=== PATIENT | male | born 1955 | race Caucasian/White ===

== ENCOUNTER 2017-04-24 10:59 | Inpatient (IN) ==
[2017-04-24] MEDS ORDERED: THIAMINE 200 MG/2 ML VIAL IV STA (11:43)
[2017-04-24] MEDS ORDERED: THIAMINE 200 MG/2 ML VIAL ONE (11:54)
[2017-04-24] MEDS ORDERED: cefTRIAXone 2,000 MG in SODIUM CHLORIDE 0.9% 100 ML IV ONE (11:55)
[2017-04-24] MEDS ORDERED: cefTRIAXone 1,000 MG VIAL ONE (11:59)
[2017-04-24 12:03] LABS: Basophils % 0.3 % (0.0-0.8); Eosinophils % 0.3 % (0.00-10.9); Hemoglobin 13.9 GM/DL (14.0-18.0); Immature Granulocytes % 0.6 %; Immature Granulocytes Absolute 0.02 #; Lymphocytes # 0.1 10*3/uL (1.4-4.0); Lymphocytes % 2.9 % (21.2-54.2); Mean Corpuscular HGB Conc 36.6 GM/DL (32-36); Mean Corpuscular Hemoglobin 36 PG (27-34); Mean Corpuscular Volume 97.9 FL (87-102); Mean Platelet Volume 10.7 FL (9.6-12.0); Monocytes # 0.3 10*3/uL (0.11-0.8); Monocytes % 9.7 % (1.7-12.7); Neutrophils % 86.2 % (38.7-73.9); Red Blood Count 3.88 MC/CUMM (3.8-5.5); Red Cell Distribution Width 12.7 % (9.3-17.3); White Blood Count 3.5 T/CUMM (4-12)
[2017-04-24 12:19] LABS: Platelet Count 92 T/CUMM (130-400)
[2017-04-24 12:28] LABS: Ammonia 21 UMOL/L (11-32)
[2017-04-24] MEDS ORDERED: THIAMINE INJ 100 MG, FOLIC ACID INJ 1 MG, MULTIVITAMIN INJ 10 ML in SODIUM CHLORIDE 0.9... IV SCH (12:30)
[2017-04-24] MEDS ORDERED: SODIUM CHLORIDE 0.9% 1,000 ML IV SCH (12:30)
[2017-04-24 12:31] LABS: Alanine Aminotransferase 288 U/L (16-61); Albumin 3.6 G/DL (3.4-5.0); Alkaline Phosphatase 97 U/L (45-117); Aspartate Amino Transferase 562 U/L (0-37); Blood Urea Nitrogen 19 MG/DL (7-18); Calcium 9.6 MG/DL (8.5-10.1); Glucose 96 MG/DL (74-106); Osmolality,Calculated 263.7 MOS/KG (273-304); Potassium 3.6 MMOL/L (3.5-5.1); Sodium 131 MMOL/L (136-145); Total Protein 6.7 G/DL (6.4-8.3)
[2017-04-24 13:12] LABS: Folate 6.2 NG/ML (5.4-24.0)
[2017-04-24 13:42] LABS: Apearance,Urine CLEAR (Clear); Bilirubin,Urine Negative (Negative); Blood, Urine Negative (Negative); Glucose,Urine (UA) Negative (Negative); Hyaline Casts,Urine 1 /LPF (0-3); Ketones,Urine 5 mg/dL (Negative); Mucus,Urine Occasional /LPF (Occasional); Nitrite,Urine Negative (Negative); Protein,Urine 30 MG/DL; RBC,Urine 1 /HPF (0-4); Squamous Epithelial Cell,Urine Occasional /HPF (0-10); Urine Color Amber (Yellow); Urine Specific Gravity 1.018 (1.001-1.035); WBC,Urine 1 /HPF (0-6)
[2017-04-24 13:54] LABS: ABG Base Excess 4.1 MMOL/L (-2.5-2.5); ABG HCO3 28.1 MMOL/L (20-26); ABG Oxygen Saturation 98.8 % (95-100); ABG PCO2 44.3 MM HG (35-48); ABG PH 7.426 (7.35-7.45); ABG TCO2 25.4 MMOL/L (23-27)
[2017-04-24 14:26] LABS: Band Neutrophils 5 % (0-10); Lymphocytes 3 % (20-55); Myelocytes 3 %; Segmented Neutrophils 78 % (50-85)
[2017-04-24 14:27] LABS: Platelet Estimate Decreased; Total Cells Counted 100
[2017-04-24] MEDS: 1: THIAMINE INJ 100 MG, FOLIC ACID INJ 1 MG, MULTIVITAMIN INJ 10 ML in SODIUM CHLORIDE 0 IV SCH ×2 (15:06→20:24)
[2017-04-24] MEDS ORDERED: PANTOPRAZOLE 40 MG VIAL IV ONE (15:07)
[2017-04-24] MEDS: PANTOPRAZOLE 40 MG VIAL IV SCH (15:20)
[2017-04-24] MEDS ORDERED: ACETAMINOPHEN 650 MG SUPP RECTAL PRN (15:34)
[2017-04-24] MEDS ORDERED: ACETAMINOPHEN 650 MG SUPP RECTAL STA (15:35)
[2017-04-24 15:36] LABS: Hepatitis A Ab IgM Quant < 0.02 Index; Hepatitis A Ab IgM Result Negative (Negative); Hepatitis B Core IgM Quant 0.11 Index; Hepatitis B Core IgM Result Negative (Negative); Hepatitis B Surface Ag Quant < 0.10 Index; Hepatitis B Surface Ag Result Negative (Negative); Hepatitis C Virus Ab Quant < 0.02 Index; Hepatitis C Virus Ab Result Negative (Negative)
[2017-04-24] MEDS ORDERED: THIAMINE INJ 100 MG, FOLIC ACID INJ 1 MG, MULTIVITAMIN INJ 10 ML in DEXTROSE 5% NACL 0.... IV SCH (16:00)
[2017-04-24] MEDS ORDERED: DEXTROSE 5% NACL 0.9% 1,000 ML IV SCH (16:00)
[2017-04-24] MEDS ORDERED: ACETAMINOPHEN 650 MG SUPP RECTAL ONE (16:00)
[2017-04-24 16:27] LABS: Albumin 3.7 G/DL (3.4-5.0); Bilirubin,Direct 0.86 MG/DL (0.0-0.20); Bilirubin,Indirect 0.6 MG/DL (0.0-1.0); Bilirubin,Total 1.5 MG/DL (0.2-1.0); Total Protein 6.9 G/DL (6.4-8.3)
[2017-04-24 16:39] LABS: Magnesium 1.8 MG/DL (1.8-2.4); Phosphorous 1.3 MG/DL (2.5-4.9)
[2017-04-24] MEDS ORDERED: INFLUENZA VIRUS VACCINE 0.5 ML SYRINGE IM ONE (19:30)
[2017-04-25] MEDS: LORazepam 2 MG/1 ML VIAL IV PRN ×3 (02:06→22:04)
[2017-04-25 06:07] LABS: Calcium 7.9 MG/DL (8.5-10.1); Potassium 3.1 MMOL/L (3.5-5.1); Total Protein 5.7 G/DL (6.4-8.3)
[2017-04-25] MEDS: PANTOPRAZOLE 40 MG VIAL IV SCH (08:36)
[2017-04-25] MEDS ORDERED: THIAMINE 200 MG/2 ML VIAL IM SCH (09:00)
[2017-04-25 09:31] LABS: Hepatitis A Ab IgM Quant < 0.02 Index; Hepatitis A Ab IgM Result Negative (Negative); Hepatitis B Core IgM Quant 0.11 Index; Hepatitis B Core IgM Result Negative (Negative); Hepatitis B Surface Ag Quant < 0.10 Index; Hepatitis B Surface Ag Result Negative (Negative); Hepatitis C Virus Ab Quant < 0.02 Index; Hepatitis C Virus Ab Result Negative (Negative)
[2017-04-25] MEDS: cefTRIAXone 1,000 MG in SYRINGE 1 EACH IV SCH (11:52)
[2017-04-25] MEDS: amLODIPine 5 MG TABLET PO SCH (12:12)
[2017-04-25] MEDS ORDERED: ACETAMINOPHEN 325 MG TABLET PO PRN (12:13)
[2017-04-25] MEDS: DIAZEPAM 10 MG/2 ML SYRINGE IV PRN (23:13)
[2017-04-26] MEDS: LORazepam 2 MG/1 ML VIAL IV PRN ×7 (03:00→23:35)
[2017-04-26] MEDS: PANTOPRAZOLE 40 MG VIAL IV SCH (08:42)
[2017-04-26] MEDS: amLODIPine 5 MG TABLET PO SCH (08:42)
[2017-04-26 09:43] LABS: PT Patient Result 10.1 SECS
[2017-04-26] MEDS ORDERED: ENOXAPARIN 40 MG/0.4 ML SYRINGE SUBCUT SCH (10:00)
[2017-04-26 10:28] LABS: Free T4 (Free Thyroxine) 1.29 NG/DL (0.76-1.46); Thyroid Stimulating Hormone 0.128 uIU/ml (0.358-3.74)
[2017-04-26] MEDS ORDERED: POTASSIUM CHLORIDE 20 MEQ TABLET PO ONE (10:30)
[2017-04-26] MEDS ORDERED: POTASSIUM CHLORIDE INJ 30 MEQ in DEXTROSE 5% 1,000 ML IV SCH (10:30)
[2017-04-26 12:15] LABS: Lymphocytes,CSF 89 %; Monocytes,CSF 11 %
[2017-04-26 12:16] LABS: Appearance,CSF Clear; Red Blood Cell,CSF < 1 C/CUMM; White Blood Cell,CSF 8 C/CUMM
[2017-04-26] MEDS: cefTRIAXone 1,000 MG in SYRINGE 1 EACH IV SCH (12:50)
[2017-04-26 13:08] LABS: HIV Antigen/Antibody Result Nonreactive (Nonreactive)
[2017-04-26] MEDS ORDERED: POTASSIUM PHOSPHATE 30 MMOL in SODIUM CHLORIDE 0.9% 250 ML IV ONE (17:00)
[2017-04-26] MEDS: DIAZEPAM 10 MG/2 ML SYRINGE IV PRN (20:09)
[2017-04-27] MEDS: LORazepam 2 MG/1 ML VIAL IV PRN (03:47)
[2017-04-27 04:58] LABS: Basophils % 0.4 % (0.0-0.8); Eosinophils % 0.4 % (0.00-10.9); Hematocrit 36.8 VOL% (42.0-52.0); Hemoglobin 13.6 GM/DL (14.0-18.0); Immature Granulocytes % 0.7 %; Immature Granulocytes Absolute 0.02 #; Lymphocytes # 0.4 10*3/uL (1.4-4.0); Lymphocytes % 13.9 % (21.2-54.2); Mean Corpuscular Hemoglobin 36 PG (27-34); Mean Corpuscular Volume 96.6 FL (87-102); Monocytes # 0.5 10*3/uL (0.11-0.8); Monocytes % 18.2 % (1.7-12.7); Neutrophils # 1.8 10*3/uL (1.4-7.4); Neutrophils % 66.4 % (38.7-73.9); Platelet Count 80 T/CUMM (130-400); Red Blood Count 3.81 MC/CUMM (3.8-5.5); Red Cell Distribution Width 12.7 % (9.3-17.3); White Blood Count 2.7 T/CUMM (4-12)
[2017-04-27 05:32] LABS: Band Neutrophils 2 % (0-10); Giant Platelets Few; Hypochromasia 1+; Lymphocytes 19 % (20-55); Ovalocytes Slight; Platelet Estimate Decreased; Segmented Neutrophils 62 % (50-85); Total Cells Counted 100
[2017-04-27 05:43] LABS: Phosphorous 2.5 MG/DL (2.5-4.9); Prealbumin 10.8 MG/DL (20-40)
[2017-04-27 05:57] LABS: Albumin 2.6 G/DL (3.4-5.0); Bilirubin,Total 0.7 MG/DL (0.2-1.0); Calcium 7.8 MG/DL (8.5-10.1); Osmolality,Calculated 266.2 MOS/KG (273-304); Potassium 2.9 MMOL/L (3.5-5.1); Total Protein 5.5 G/DL (6.4-8.3)
[2017-04-27] MEDS ORDERED: MAGNESIUM SULF RIDER 2 GM in PREMIX 1 EACH IV PRN (08:04)
[2017-04-27] MEDS ORDERED: MAGNESIUM SULF RIDER 4 GM in PREMIX 1 EACH IV PRN (08:04)
[2017-04-27] MEDS ORDERED: POTASSIUM CHLORIDE 20 MEQ/15 ML UDCUP PO ONE (09:00)
[2017-04-27] MEDS: POTASSIUM CHLORIDE RIDER 10 MEQ in PREMIX 1 EACH IV PRN ×4 (10:19→15:00)
[2017-04-27] MEDS: PANTOPRAZOLE 40 MG VIAL IV SCH (10:19)
[2017-04-27] MEDS: amLODIPine 5 MG TABLET PO SCH (10:19)
[2017-04-27] MEDS: ZIPRASIDONE 20 MG/1 ML VIAL IM PRN (12:15)
[2017-04-27] MEDS: cefTRIAXone 1,000 MG in SYRINGE 1 EACH IV SCH (13:26)
[2017-04-27] MEDS: SUCRALFATE 1 GM/10 ML UDCUP NG SCH ×3 (13:38→23:30)
[2017-04-27] MEDS: POTASSIUM CHLORIDE 20 MEQ/15 ML UDCUP PO SCH (21:02)
[2017-04-28] MEDS: SUCRALFATE 1 GM/10 ML UDCUP NG SCH ×3 (05:44→17:15)
[2017-04-28 06:22] LABS: Basophils % 0.4 % (0.0-0.8); Hematocrit 36.1 VOL% (42.0-52.0); Hemoglobin 13.2 GM/DL (14.0-18.0); Immature Granulocytes % 0.4 %; Immature Granulocytes Absolute 0.01 #; Lymphocytes # 0.4 10*3/uL (1.4-4.0); Mean Corpuscular HGB Conc 36.6 GM/DL (32-36); Mean Corpuscular Hemoglobin 36 PG (27-34); Mean Corpuscular Volume 97.8 FL (87-102); Mean Platelet Volume 11.4 FL (9.6-12.0); Monocytes # 0.5 10*3/uL (0.11-0.8); Monocytes % 19.6 % (1.7-12.7); Neutrophils # 1.6 10*3/uL (1.4-7.4); Neutrophils % 63.6 % (38.7-73.9); Platelet Count 101 T/CUMM (130-400); Red Blood Count 3.69 MC/CUMM (3.8-5.5); Red Cell Distribution Width 12.8 % (9.3-17.3); White Blood Count 2.5 T/CUMM (4-12)
[2017-04-28 06:53] LABS: Albumin 2.5 G/DL (3.4-5.0); Bilirubin,Total 0.9 MG/DL (0.2-1.0); Osmolality,Calculated 274.7 MOS/KG (273-304); Total Protein 5.5 G/DL (6.4-8.3)
[2017-04-28 06:57] LABS: Band Neutrophils 3 % (0-10); Lymphocytes 15 % (20-55); Segmented Neutrophils 60 % (50-85); Total Cells Counted 100
[2017-04-28 06:59] LABS: Giant Platelets Few; Hypochromasia 1+; Ovalocytes Slight; Platelet Estimate Decreased
[2017-04-28] MEDS ORDERED: IBUPROFEN 100 MG/5 ML UDCUP PO PRN (07:06)
[2017-04-28] MEDS: POTASSIUM CHLORIDE 20 MEQ/15 ML UDCUP PO SCH ×2 (09:09→21:18)
[2017-04-28] MEDS: amLODIPine 5 MG TABLET PO SCH (09:09)
[2017-04-28] MEDS: ACETAMINOPHEN 325 MG/10.15 ML UDCUP PER TUBE PRN (11:07)
[2017-04-28] MEDS ORDERED: ZIPRASIDONE 20 MG CAPSULE PO SCH (12:30)
[2017-04-28] MEDS: ALBUTEROL/IPRATROPIUM 3 ML NEB RESP TX SCH ×2 (13:41→20:03)
[2017-04-28] MEDS ORDERED: SODIUM PHOSPHATE INJ 30 MMOL in SODIUM CHLORIDE 0.9% 250 ML IV ONE (14:00)
[2017-04-29] MEDS: SUCRALFATE 1 GM/10 ML UDCUP NG SCH ×4 (00:22→17:59)
[2017-04-29] MEDS: ALBUTEROL/IPRATROPIUM 3 ML NEB RESP TX SCH ×4 (01:34→20:58)
[2017-04-29 06:18] LABS: Basophils % 0.3 % (0.0-0.8); Hematocrit 36.7 VOL% (42.0-52.0); Hemoglobin 13.1 GM/DL (14.0-18.0); Immature Granulocytes % 0.3 %; Immature Granulocytes Absolute 0.01 #; Lymphocytes # 0.4 10*3/uL (1.4-4.0); Lymphocytes % 11.1 % (21.2-54.2); Mean Corpuscular HGB Conc 35.7 GM/DL (32-36); Mean Corpuscular Hemoglobin 35 PG (27-34); Mean Corpuscular Volume 97.6 FL (87-102); Mean Platelet Volume 11.4 FL (9.6-12.0); Monocytes # 0.4 10*3/uL (0.11-0.8); Monocytes % 11.9 % (1.7-12.7); Neutrophils # 2.8 10*3/uL (1.4-7.4); Neutrophils % 76.4 % (38.7-73.9); Platelet Count 125 T/CUMM (130-400); Red Blood Count 3.76 MC/CUMM (3.8-5.5); Red Cell Distribution Width 13.2 % (9.3-17.3); White Blood Count 3.7 T/CUMM (4-12)
[2017-04-29 06:55] LABS: Albumin 2.2 G/DL (3.4-5.0); Bilirubin,Total 0.6 MG/DL (0.2-1.0); Calcium 7.6 MG/DL (8.5-10.1); Osmolality,Calculated 276.5 MOS/KG (273-304); Potassium 4.1 MMOL/L (3.5-5.1); Total Protein 5.4 G/DL (6.4-8.3)
[2017-04-29] MEDS ORDERED: POTASSIUM CHLORIDE 20 MEQ/15 ML UDCUP PO SCH (09:00)
[2017-04-29] MEDS: POTASSIUM CHLORIDE 20 MEQ/15 ML UDCUP PO SCH (10:15)
[2017-04-29] MEDS: amLODIPine 5 MG TABLET PO SCH (10:15)
[2017-04-29] MEDS ORDERED: SODIUM PHOSPHATE INJ 20 MMOL in SODIUM CHLORIDE 0.9% 250 ML IV ONE (10:57)
[2017-04-29 11:34] LABS: Ceruloplasmin 24.2
[2017-04-29] MEDS ORDERED: POTASSIUM CHLORIDE 20 MEQ/15 ML UDCUP PER TUBE PRN (12:11)
[2017-04-29] MEDS: ACETAMINOPHEN 325 MG/10.15 ML UDCUP PER TUBE PRN (17:59)
[2017-04-30] MEDS: ALBUTEROL/IPRATROPIUM 3 ML NEB RESP TX SCH ×5 (00:38→23:14)
[2017-04-30] MEDS: SUCRALFATE 1 GM/10 ML UDCUP NG SCH ×4 (00:44→18:34)
[2017-04-30] MEDS: ACETAMINOPHEN 325 MG/10.15 ML UDCUP PER TUBE PRN (03:23)
[2017-04-30 06:50] LABS: Calcium 8.3 MG/DL (8.5-10.1); Magnesium 1.9 MG/DL (1.8-2.4); Osmolality,Calculated 277.7 MOS/KG (273-304); Potassium 3.9 MMOL/L (3.5-5.1); Prealbumin 8.5 MG/DL (20-40)
[2017-04-30] MEDS: amLODIPine 5 MG TABLET PO SCH (09:04)
[2017-04-30] MEDS ORDERED: POTASSIUM PHOSPHATE 15 MMOL in SODIUM CHLORIDE 0.9% 100 ML IV ONE (12:31)
[2017-04-30] MEDS ORDERED: CLORAZEPATE 7.5 MG TABLET PO SCH (15:00)
[2017-04-30] MEDS: CLORAZEPATE 7.5 MG TABLET PO SCH ×2 (15:39→20:07)
[2017-04-30] MEDS: LORazepam 2 MG/1 ML VIAL IV PRN (20:32)
[2017-04-30] MEDS: ZIPRASIDONE 20 MG/1 ML VIAL IM PRN (23:07)
[2017-05-01] MEDS: SUCRALFATE 1 GM/10 ML UDCUP NG SCH ×5 (00:09→23:30)
[2017-05-01] MEDS: LORazepam 2 MG/1 ML VIAL IV PRN ×4 (06:22→23:23)
[2017-05-01] MEDS: ALBUTEROL/IPRATROPIUM 3 ML NEB RESP TX SCH ×3 (07:21→19:28)
[2017-05-01 07:29] LABS: Calcium 8.2 MG/DL (8.5-10.1); Osmolality,Calculated 278.4 MOS/KG (273-304); Phosphorous 2.6 MG/DL (2.5-4.9); Potassium 4.1 MMOL/L (3.5-5.1)
[2017-05-01] MEDS: amLODIPine 5 MG TABLET PO SCH (09:53)
[2017-05-01] MEDS: CLORAZEPATE 7.5 MG TABLET PO SCH ×2 (09:53→14:15)
[2017-05-02] MEDS: DIAZEPAM 10 MG/2 ML SYRINGE IV PRN (00:28)
[2017-05-02] MEDS: ALBUTEROL/IPRATROPIUM 3 ML NEB RESP TX SCH ×4 (00:29→20:08)
[2017-05-02] MEDS ORDERED: DIAZEPAM 10 MG/2 ML SYRINGE IV ONE (00:47)
[2017-05-02] MEDS ORDERED: KETOROLAC 15 MG/1 ML VIAL IV ONE (00:48)
[2017-05-02] MEDS ORDERED: KETOROLAC 15 MG/1 ML VIAL IV PRN (01:40)
[2017-05-02 02:36] LABS: Calcium 8.1 MG/DL (8.5-10.1); Magnesium 2.5 MG/DL (1.8-2.4); Osmolality,Calculated 272.8 MOS/KG (273-304); Potassium 3.8 MMOL/L (3.5-5.1)
[2017-05-02 02:56] LABS: Basophils % 0.2 % (0.0-0.8); Eosinophils % 0.7 % (0.00-10.9); Hematocrit 34.8 VOL% (42.0-52.0); Hemoglobin 12.3 GM/DL (14.0-18.0); Immature Granulocytes % 0.7 %; Immature Granulocytes Absolute 0.03 #; Lymphocytes # 0.5 10*3/uL (1.4-4.0); Lymphocytes % 11.6 % (21.2-54.2); Mean Corpuscular HGB Conc 35.3 GM/DL (32-36); Mean Corpuscular Hemoglobin 35 PG (27-34); Mean Corpuscular Volume 99.7 FL (87-102); Mean Platelet Volume 11.8 FL (9.6-12.0); Monocytes # 0.5 10*3/uL (0.11-0.8); Monocytes % 11.3 % (1.7-12.7); Neutrophils # 3.3 10*3/uL (1.4-7.4); Neutrophils % 75.5 % (38.7-73.9); Platelet Count 231 T/CUMM (130-400); Red Blood Count 3.49 MC/CUMM (3.8-5.5); Red Cell Distribution Width 13.4 % (9.3-17.3); White Blood Count 4.3 T/CUMM (4-12)
[2017-05-02] MEDS: CLORAZEPATE 7.5 MG TABLET PO SCH ×2 (03:38→15:23)
[2017-05-02] MEDS: SUCRALFATE 1 GM/10 ML UDCUP NG SCH ×4 (06:19→23:54)
[2017-05-02 08:17] LABS: Hypochromasia 1+
[2017-05-02] MEDS: amLODIPine 5 MG TABLET PO SCH (09:37)
[2017-05-02] MEDS: LORazepam 2 MG/1 ML VIAL IV PRN (09:47)
[2017-05-02 13:36] LABS: ABG Base Excess 0.9 MMOL/L (-2.5-2.5); ABG HCO3 25.2 MMOL/L (20-26); ABG Oxygen Saturation 97.9 % (95-100); ABG PCO2 32.1 MM HG (35-48); ABG PH 7.476 (7.35-7.45); ABG PO2 96.7 MM HG (80-95); ABG TCO2 20.6 MMOL/L (23-27)
[2017-05-02] MEDS: VANCOMYCIN INJ 1,000 MG in SODIUM CHLORIDE 0.45% 250 ML IV SCH (16:00)
[2017-05-02] MEDS: PIPERACILLIN/TAZOBACTAM 3,375 MG in SODIUM CHLORIDE 0.9% 100 ML IV SCH (21:14)
[2017-05-03] MEDS: ALBUTEROL/IPRATROPIUM 3 ML NEB RESP TX SCH ×4 (00:48→19:46)
[2017-05-03 05:03] LABS: Basophils % 0.3 % (0.0-0.8); Eosinophils % 0.6 % (0.00-10.9); Hematocrit 34.9 VOL% (42.0-52.0); Hemoglobin 12.6 GM/DL (14.0-18.0); Immature Granulocytes % 0.4 %; Immature Granulocytes Absolute 0.03 #; Lymphocytes # 0.6 10*3/uL (1.4-4.0); Lymphocytes % 8.3 % (21.2-54.2); Mean Corpuscular HGB Conc 36.1 GM/DL (32-36); Mean Corpuscular Hemoglobin 36 PG (27-34); Mean Corpuscular Volume 98.3 FL (87-102); Mean Platelet Volume 11.2 FL (9.6-12.0); Monocytes # 0.5 10*3/uL (0.11-0.8); Monocytes % 7.1 % (1.7-12.7); Neutrophils # 5.6 10*3/uL (1.4-7.4); Neutrophils % 83.3 % (38.7-73.9); Platelet Count 298 T/CUMM (130-400); Red Blood Count 3.55 MC/CUMM (3.8-5.5); Red Cell Distribution Width 12.9 % (9.3-17.3); White Blood Count 6.7 T/CUMM (4-12)
[2017-05-03] MEDS: PIPERACILLIN/TAZOBACTAM 3,375 MG in SODIUM CHLORIDE 0.9% 100 ML IV SCH ×3 (05:20→21:29)
[2017-05-03 05:42] LABS: Phosphorous 2.9 MG/DL (2.5-4.9); Prealbumin 9.9 MG/DL (20-40)
[2017-05-03 05:54] LABS: Albumin 2.2 G/DL (3.4-5.0); Bilirubin,Direct 0.49 MG/DL (0.0-0.20); Bilirubin,Indirect 0.9 MG/DL (0.0-1.0); Bilirubin,Total 1.4 MG/DL (0.2-1.0); Magnesium 2.5 MG/DL (1.8-2.4); Osmolality,Calculated 276.5 MOS/KG (273-304); Total Protein 5.8 G/DL (6.4-8.3)
[2017-05-03] MEDS: SUCRALFATE 1 GM/10 ML UDCUP NG SCH ×3 (06:23→18:26)
[2017-05-03] MEDS: amLODIPine 5 MG TABLET PO SCH (09:04)
[2017-05-03] MEDS: CLORAZEPATE 7.5 MG TABLET PO SCH (09:05)
[2017-05-03] MEDS: methylPREDNISolone SOD SUC 125 MG/2 ML VIAL IV SCH ×2 (11:42→18:26)
[2017-05-03] MEDS: VANCOMYCIN INJ 1,000 MG in SODIUM CHLORIDE 0.45% 250 ML IV SCH (13:09)
[2017-05-04] MEDS: methylPREDNISolone SOD SUC 125 MG/2 ML VIAL IV SCH ×4 (00:15→16:42)
[2017-05-04] MEDS: SUCRALFATE 1 GM/10 ML UDCUP NG SCH ×5 (00:16→23:58)
[2017-05-04] MEDS: ALBUTEROL/IPRATROPIUM 3 ML NEB RESP TX SCH ×5 (01:09→21:40)
[2017-05-04] MEDS: VANCOMYCIN INJ 1,000 MG in SODIUM CHLORIDE 0.45% 250 ML IV SCH ×2 (01:46→14:09)
[2017-05-04] MEDS: PIPERACILLIN/TAZOBACTAM 3,375 MG in SODIUM CHLORIDE 0.9% 100 ML IV SCH ×3 (05:29→21:04)
[2017-05-04] MEDS: ENOXAPARIN 40 MG/0.4 ML SYRINGE SUBCUT SCH (09:38)
[2017-05-04] MEDS: amLODIPine 5 MG TABLET PO SCH (09:38)
[2017-05-04] MEDS: LACTULOSE 20 GM/30 ML UDCUP PO SCH ×3 (09:41→21:06)
[2017-05-04] MEDS: ZIPRASIDONE 20 MG/1 ML VIAL IM PRN ×2 (10:32→21:04)
[2017-05-04] MEDS ORDERED: VANCOMYCIN INJ 500 MG in SODIUM CHLORIDE 0.9% 100 ML IV ONE (15:00)
[2017-05-05] MEDS: methylPREDNISolone SOD SUC 125 MG/2 ML VIAL IV SCH ×4 (00:07→18:08)
[2017-05-05] MEDS: ALBUTEROL/IPRATROPIUM 3 ML NEB RESP TX SCH ×4 (00:52→19:37)
[2017-05-05] MEDS: ZIPRASIDONE 20 MG/1 ML VIAL IM PRN ×3 (03:27→21:45)
[2017-05-05] MEDS: VANCOMYCIN INJ 1,250 MG in SODIUM CHLORIDE 0.45% 250 ML IV SCH ×2 (03:49→16:10)
[2017-05-05] MEDS: PIPERACILLIN/TAZOBACTAM 3,375 MG in SODIUM CHLORIDE 0.9% 100 ML IV SCH ×3 (05:30→21:26)
[2017-05-05] MEDS: SUCRALFATE 1 GM/10 ML UDCUP NG SCH ×3 (05:32→18:02)
[2017-05-05 05:46] LABS: Hematocrit 37.1 VOL% (42.0-52.0); Hemoglobin 13.4 GM/DL (14.0-18.0); Immature Granulocytes % 0.6 %; Immature Granulocytes Absolute 0.03 #; Lymphocytes # 0.4 10*3/uL (1.4-4.0); Lymphocytes % 7.9 % (21.2-54.2); Mean Corpuscular HGB Conc 36.1 GM/DL (32-36); Mean Corpuscular Hemoglobin 35 PG (27-34); Mean Corpuscular Volume 96.6 FL (87-102); Mean Platelet Volume 11.5 FL (9.6-12.0); Monocytes # 0.3 10*3/uL (0.11-0.8); Monocytes % 6.2 % (1.7-12.7); Neutrophils # 4.1 10*3/uL (1.4-7.4); Neutrophils % 85.3 % (38.7-73.9); Platelet Count 443 T/CUMM (130-400); Red Blood Count 3.84 MC/CUMM (3.8-5.5); Red Cell Distribution Width 12.8 % (9.3-17.3); White Blood Count 4.8 T/CUMM (4-12)
[2017-05-05 06:20] LABS: Albumin 2.6 G/DL (3.4-5.0); Bilirubin,Direct 0.44 MG/DL (0.0-0.20); Bilirubin,Indirect 0.9 MG/DL (0.0-1.0); Bilirubin,Total 1.3 MG/DL (0.2-1.0); Calcium 8.8 MG/DL (8.5-10.1); Magnesium 2.6 MG/DL (1.8-2.4); Osmolality,Calculated 289.7 MOS/KG (273-304); Phosphorous 2.2 MG/DL (2.5-4.9); Potassium 3.8 MMOL/L (3.5-5.1); Total Protein 6.3 G/DL (6.4-8.3)
[2017-05-05] MEDS ORDERED: SODIUM PHOSPHATE INJ 30 MMOL in SODIUM CHLORIDE 0.9% 250 ML IV ONE (08:00)
[2017-05-05] MEDS: LACTULOSE 20 GM/30 ML UDCUP PO SCH ×2 (10:30→20:02)
[2017-05-05] MEDS: amLODIPine 5 MG TABLET PO SCH (10:48)
[2017-05-05] MEDS: ENOXAPARIN 40 MG/0.4 ML SYRINGE SUBCUT SCH (11:19)
[2017-05-05] MEDS ORDERED: LORazepam 2 MG/1 ML VIAL IV ONE (17:27)
[2017-05-05] MEDS ORDERED: diphenhydrAMINE 50 MG/1 ML VIAL IV ONE (17:27)
[2017-05-06] MEDS: ALBUTEROL/IPRATROPIUM 3 ML NEB RESP TX SCH ×4 (00:09→20:12)
[2017-05-06] MEDS: methylPREDNISolone SOD SUC 125 MG/2 ML VIAL IV SCH ×5 (00:15→23:53)
[2017-05-06] MEDS: SUCRALFATE 1 GM/10 ML UDCUP NG SCH ×5 (00:16→18:09)
[2017-05-06] MEDS: VANCOMYCIN INJ 1,250 MG in SODIUM CHLORIDE 0.45% 250 ML IV SCH ×2 (03:21→16:16)
[2017-05-06] MEDS: PIPERACILLIN/TAZOBACTAM 3,375 MG in SODIUM CHLORIDE 0.9% 100 ML IV SCH ×2 (05:35→13:13)
[2017-05-06] MEDS: ENOXAPARIN 40 MG/0.4 ML SYRINGE SUBCUT SCH (10:01)
[2017-05-06] MEDS: amLODIPine 5 MG TABLET PO SCH (10:01)
[2017-05-06] MEDS: LACTULOSE 20 GM/30 ML UDCUP PO SCH ×2 (10:02→23:37)
[2017-05-06] MEDS ORDERED: diphenhydrAMINE 50 MG/1 ML VIAL IV ONE (13:50)
[2017-05-06] MEDS ORDERED: HALOPERIDOL 5 MG/ML AMP IV ONE (13:50)
[2017-05-06] MEDS ORDERED: LORazepam 2 MG/1 ML VIAL IV ONE (13:50)
[2017-05-06] MEDS ORDERED: LORazepam 2 MG/1 ML VIAL IM PRN (17:14)
[2017-05-06] MEDS ORDERED: chlorproMAZINE INJ 50 MG in SODIUM CHLORIDE 0.9% 100 ML IV ONE (17:16)
[2017-05-06] MEDS: chlordiazePOXIDE 25 MG CAPSULE PO SCH ×2 (18:09→23:36)
[2017-05-07] MEDS: ALBUTEROL/IPRATROPIUM 3 ML NEB RESP TX SCH ×2 (00:46→07:40)
[2017-05-07] MEDS: SUCRALFATE 1 GM/10 ML UDCUP NG SCH ×3 (01:14→12:14)
[2017-05-07] MEDS: chlordiazePOXIDE 25 MG CAPSULE PO SCH ×3 (02:59→09:51)
[2017-05-07] MEDS: methylPREDNISolone SOD SUC 125 MG/2 ML VIAL IV SCH ×2 (06:46→12:14)
[2017-05-07] MEDS: LACTULOSE 20 GM/30 ML UDCUP PO SCH (09:44)
[2017-05-07] MEDS: amLODIPine 5 MG TABLET PO SCH (09:51)
[2017-05-07] MEDS: ENOXAPARIN 40 MG/0.4 ML SYRINGE SUBCUT SCH (09:52)
[2017-05-07 11:48] VITALS: BP 133/85
== END 2017-05-07 11:55 | disposition home or self-care (01) | DRG 896 ==
LOC: N.ED 10:59 → SUATTDRO 11:45 → N.EDINP 11:45 → N.CC 19:10 → N.3E 04-27 16:00
PROVIDERS: ADMIT Internal Medicine